=== PATIENT | male | born 1995 | race African-American/Black ===

== ENCOUNTER 2017-09-18 11:18 | Emergency (ER) | payer OTHER ==
[2017-09-18] MEDS: ceFAZolin SOD 1 GM in D5W MINI-BAG PLUS 50 ML IV (11:50)
[2017-09-18] MEDS: MORPHINE 4 MG/ML 1ML VIAL/SYRINGE (J2270) IV (12:18)
== END 2017-09-18 13:36 | disposition home or self-care (01) ==
LOC: M ED 11:18
DX: S63.294A Dislocation of distal interphalangeal joint of right ring finger, initial encounter (principal); S61.204A Unspecified open wound of right ring finger without damage to nail, initial encounter; X58.XXXA Exposure to other specified factors, initial encounter; Y92.139 Unspecified place military base as the place of occurrence of the external cause; Y93.61 Activity, american tackle football; Y99.1 Military activity
CPT/HCPCS: J0690